=== PATIENT | female | born 1980 | race African-American/Black ===

== ENCOUNTER 2018-06-26 06:36 | Emergency (ER) | payer OTHER, SELFPAY ==
[~2018-06-26] VITALS: Ht 160 cm; Wt 81.6 kg
[~2018-06-26 06:36] MED LIST: ONDA4TAB10 SL; ONDA8TAB12 PO
[2018-06-26 06:44] VITALS: BP 142/94
--- NOTE | 2018-06-26 07:41 | PHYS DOC ---
Past Medical History Past Medical History: Anxiety, Hypertension Past Surgical History: No Surgical History Alcohol Use: Occasionally Drug Use: None Adult General Chief Complaint Chief Complaint: EYE PROBLEMS HPI HPI Patient is a 37-year-old female who presents to the emergency department for evaluation. She states that yesterday morning she began experiencing some irritation and pain in her left eye, which has been tearing since then. She denies any vision changes but does report some light sensitivity. She denies any ocular injury. She does wear corrective lenses, and occasionally wears contact lenses, but states she has not worn them for about 2 weeks. She states, however, that she does not normally take her lenses that when she is supposed to, and leaves them in for a while. She denies any purulent discharge, other than clear tearing discharge. She presents to the emergency department for evaluation. Other than as stated above, there are no alleviating or exacerbating factors to her symptoms. Review of Systems Review of Systems Constitutional: Denies fever or chills [] Eyes: No additional information not addressed in HPI [] HENT: Denies nasal congestion or sore throat [] Neurologic: Denies headache, focal weakness or sensory changes [] Current Medications Current Medications Current Medications Medications (Trade) Dose Ordered Sig/Eusebio Start Time Stop Time Status Last Admin Dose Admin Fluorescein Sodium (Ful-Kortney) 1 strip 1X ONCE 06/26/18 07:45 06/26/18 07:46 DC 06/26/18 07:49 1 STRIP Tetracaine HCl (Tetracaine) 1 drop 1X ONCE 06/26/18 07:45 06/26/18 07:46 DC 06/26/18 07:49 1 DROP Allergies Allergies Allergies Coded Allergies Type Severity Reaction Last Updated Verified No Known Drug Allergies 03/04/14 No Physical Exam Physical Exam PHYSICAL EXAM: CONSTITUTIONAL: Well developed, well nourished HEAD: normocephalic, atraumatic EENT: PERRL, EOMI. there is moderate conjunctival injection of the left eye, the right Conjunctiva is normal in color, sclerae non-icteric; moist mucous membranes. To the naked eye, there is a punctate whitish/cloudy lesion noted on the anterior aspect of the left cornea, at about 3 O'clock just outside the visual axis. On fluorescein examination this area does exhibit uptake, there are no dendritic lesions noted, no other fluorescein uptake is noted. NECK: Supple, non-tender; no meningismus. LUNGS: Lungs CTA, breathing even and unlabored. Normal air movement. HEART: Regular rate and rhythm, no murmur CHEST: No deformity; non-tender SKIN: No rashes noted. NEURO: Alert; normal speech and cognition; CN's grossly intact; strength grossly intact without focal deficit. Current Patient Data Vital Signs Vital Signs Date Time Temp Pulse Resp B/P (MAP) Pulse Ox O2 Delivery O2 Flow Rate FiO2 06/26/18 06:44 98.4 78 18 142/94 (110) 100 Room Air 98.4 EKG EKG [] Radiology/Procedures Radiology/Procedures [] Course & Med Decision Making Course & Med Decision Making On exam the patient does appear to have a corneal ulcer. There is no exam evidence at this time to suggest definitive herpes infection, though this remains a diagnostic possibility. I did discuss importance of prompt ophthalmology follow-up with the patient, further evaluation. I'll start the patient on an antibacterial medication only at this time, as it corneal ulcer, possibly related to prolonged contact lens use, is more highly suspected. The importance of close follow-up and return precautions were stressed in detail to the patient. Dragon Disclaimer Dragon Disclaimer This electronic medical record was generated, in whole or in part, using a voice recognition dictation system. Departure Departure Impression: Primary Impression: Corneal ulcer Disposition: 01 HOME, SELF-CARE Condition: STABLE Referrals: NO PCP (PCP) Patient Instructions: Corneal Ulcer, Eye - Corneal Abrasion Additional Instructions: Follow-up with Dr. Carbajal, ophthalmology, . Please call today to schedule an appointment. Scripts Ciprofloxacin Hcl (CILOXAN) 5 Ml Drops 1 DROP OD QID PRN for Q3H for 7 Days, #5 ML Prov: MATT PELAEZ MD 06/26/18 MATT PELAEZ MD June 26, 2018 07:41
[2018-06-26] MEDS ORDERED: TETRACAINE 0.5% OPHTH SOLUTION 4ML BOTTLE. OU ONE (07:45)
[2018-06-26] MEDS ORDERED: FLUORESCEIN OPHTH TEST STRIP. OU ONE (07:45)
[2018-06-26] MEDS ORDERED: CIPR5DRO OD (08:24)
== END 2018-06-26 08:43 | disposition home or self-care (01) ==
LOC: ER 06:36
DX: H16.002 Unspecified corneal ulcer, left eye (principal); F41.9 Anxiety disorder, unspecified; I10 Essential (primary) hypertension
CPT/HCPCS: 99283

== ENCOUNTER 2018-09-21 23:18 | Emergency (ER) | payer SELFPAY ==
[~2018-09-21] VITALS: Ht 162.6 cm; Wt 83.9 kg
[~2018-09-21 23:18] MED LIST changes: +CIPR5DRO OD
[2018-09-22 00:44] VITALS: BP 135/94
--- NOTE | 2018-09-22 01:34 | PHYS DOC ---
Past Medical History Past Medical History: Anxiety, Hypertension Past Surgical History: No Surgical History Alcohol Use: None Drug Use: None Adult General Chief Complaint Chief Complaint: FOOT INJURY PAIN [facility] HPI Patient is a 37-year-old female who presents with a complaint of pain and injury to her left third toe and foot that she sustained while walking down stairs. She states that her sandal broke in her foot slipped and toe bent backwards. Patient states that her third toe appeared out of place and she continues to have pain that she rates as moderate and describes as throbbing. She states that injury occurred a little after 10:30 PM. She denies any other injuries.[] Review of Systems Review of Systems Constitutional: Denies fever or chills [] Respiratory: Denies cough or shortness of breath [] Cardiovascular: No additional information not addressed in HPI [] Musculoskeletal: Positive left foot and third toe pain [] Integument: Denies rash or skin lesions [] Current Medications Current Medications Current Medications Medications (Trade) Dose Ordered Sig/Eusebio Start Time Stop Time Status Last Admin Dose Admin Acetaminophen/ Hydrocodone Bitart (Lortab 5/325) 1 tab 1X ONCE 09/22/18 01:45 09/22/18 01:46 DC 09/22/18 01:45 1 TAB Lidocaine HCl (Lidocaine 1% 20ml Vial) 20 ml 1X ONCE 09/22/18 03:30 09/22/18 03:31 DC 09/22/18 03:15 20 ML Allergies Allergies Allergies Coded Allergies Type Severity Reaction Last Updated Verified No Known Drug Allergies 03/04/14 No Physical Exam Physical Exam Constitutional: Well developed, well nourished, no acute distress, non-toxic appearance. [] Cardiovascular:Heart rate regular rhythm, no murmur [] Lungs & Thorax: Bilateral breath sounds clear to auscultation [] Extremities: Examination of left foot demonstrates tenderness to palpation around the tarsometatarsal joint of the third toe. [] Neurologic: Alert and oriented X 3, no focal deficits noted. [] Current Patient Data Vital Signs Vital Signs Date Time Temp Pulse Resp B/P (MAP) Pulse Ox O2 Delivery O2 Flow Rate FiO2 09/22/18 01:45 16 99 Room Air 09/22/18 00:44 98.1 82 135/94 (108) 98.1 EKG EKG [] Radiology/Procedures Radiology/Procedures [] Impressions: PROCEDURE: FOOT LEFT 3V EXAM: AP, oblique and lateral views of the left foot DATE: 09/22/2018 1:42 AM INDICATION: Third toe pain, fall, injury COMPARISON: No Prior FINDINGS: Apparent overlap between the proximal and middle phalanx of the third toe suspicious for dislocation at the PIP joint. Mild associated soft tissue swelling. IMPRESSION: Possible dislocation third toe PIP joint. This can be further assessed with dedicated toe radiographs without overlap of the other toes. Electronically signed by: Stephane Thornton MD (09/22/2018 2:18 AM) [facility] [place] Dedicated x-ray of toes demonstrates a dislocation of the third tarsometatarsal joint. 1% lidocaine was utilized to instill block to the tarsometatarsal joint with total of 2 mL of 1% lidocaine placed and toe was reduced utilizing traction/countertraction. Post reduction x-ray was reviewed and demonstrates restored bony alignment. Patient placed in postop shoe and instructed to follow-up with orthopedics. Course & Med Decision Making Course & Med Decision Making Pertinent Labs and Imaging studies reviewed. (See chart for details) [] Dragon Disclaimer Dragon Disclaimer This electronic medical record was generated, in whole or in part, using a voice recognition dictation system. Departure Departure Impression: Primary Impression: Dislocation of third toe, left, closed Disposition: 01 HOME, SELF-CARE Condition: STABLE Referrals: NO PCP (PCP) Patient Instructions: Toe Dislocation Scripts Hydrocodone/Apap 5-325 (NORCO 5-325 TABLET) 1 Each Tablet 1-2 EACH PO PRN Q6HRS PRN for PAIN, #15 as needed for pain Prov: GIOVANY SÁNCHEZ Jr. DO 09/22/18 Problem Qualifiers Primary Impression: Dislocation of third toe, left, closed Encounter type: initial encounter Qualified Codes: S93.105A - Unspecified dislocation of left toe(s), initial encounter GIOVANY SÁNCHEZ Jr. DO Sep 22, 2018 01:34
[2018-09-22] MEDS ORDERED: HYDROcodone/APAP 5/325MG 1 TAB TABLET PO ONE (01:45)
--- NOTE | 2018-09-22 02:21 | RAD ---
EXAM: AP, oblique and lateral views of the left foot DATE: 09/22/2018 1:42 AM INDICATION: Third toe pain, fall, injury COMPARISON: No Prior FINDINGS: Apparent overlap between the proximal and middle phalanx of the third toe suspicious for dislocation at the PIP joint. Mild associated soft tissue swelling. IMPRESSION: Possible dislocation third toe PIP joint. This can be further assessed with dedicated toe radiographs without overlap of the other toes. Electronically signed by: Stephane Thornton MD (09/22/2018 2:18 AM) [facility]
[2018-09-22] MEDS ORDERED: LIDOCAINE 1% Multi-Dose 20 ML VIAL. ONE (03:14)
[2018-09-22] MEDS ORDERED: LIDOCAINE 1% Multi-Dose 20 ML VIAL. INJ ONE (03:30)
[2018-09-22] MEDS ORDERED: HYDR-3164 PO (04:14)
--- NOTE | 2018-09-22 08:25 | RAD ---
Left toes. HISTORY: Left third toe bent backwards, injury 3 views were taken of the left toes. There is a dislocation at the proximal interphalangeal joint of the left third toe. A fracture is not identified. IMPRESSION: 1. Dislocation at the proximal interphalangeal joint of the left third toe. Electronically signed by: Rad Leon MD (09/22/2018 8:22 AM) [facility]
--- NOTE | 2018-09-22 08:26 | RAD ---
Left toes 3 views, HISTORY: postreduction 3 views were taken of the left toes. There is been reduction of the dislocation at the proximal interphalangeal joint of the third toe. A fracture is not identified. IMPRESSION: 1. Reduction of previous dislocation of the third toe. 2. No acute fracture. Electronically signed by: Rad Leon MD (09/22/2018 8:24 AM) [facility]
== END 2018-09-22 04:45 | disposition home or self-care (01) ==
LOC: ER 23:18
DX: S93.125A Dislocation of metatarsophalangeal joint of left lesser toe(s), initial encounter (principal); F41.9 Anxiety disorder, unspecified; I10 Essential (primary) hypertension; X50.1XXA Overexertion from prolonged static or awkward postures, initial encounter; Y93.01 Activity, walking, marching and hiking; Y92.89 Other specified places as the place of occurrence of the external cause; Y99.8 Other external cause status
CPT/HCPCS: 28600; 28660; 73630; 73660; 99284